=== PATIENT | female | born 1985 | race Caucasian/White ===

== ENCOUNTER 2017-12-03 12:45 | Emergency (ER) | payer BC ==
[2017-12-03 12:55] VITALS: TEMP 98.7
[2017-12-03] MEDS ORDERED: ALPRAZolam 0.5 MG TAB PO STA (13:26)
--- NOTE | 2017-12-03 13:30 | ED ---
General Adult HPI - General Chief complaint: Anxiety Stated complaint: Anxiety Time Seen by Provider: 12/03/17 13:13 Source: patient, RN notes reviewed Mode of arrival: ambulatory Limitations: no limitations - History of Present Illness Initial comments: Patient is a 32-year-old female with significant past medical history for anxiety, presenting today with a chief complaint of possible withdrawals. She states that she's been trying to wean off of her Xanax. She is been followed the family doctor for this. She states she was taking 1 mg twice a day. She states this past month she was taking 0.5 mg twice a day. She states she ran out taking her last dose yesterday morning. She states she was worried and noticed that she was having increased anxiety today. States she was also worried because she wouldn't be able to get new prescription until Wednesday is 4 days away. Patient states she just found out that the pharmacy does have her prescription that she is able to bead picker now. She states she still feeling a little anxious which is symptoms are consistent with anxiety that she's had in the past. She states she's been dealing with this since the age of 16. She states she feels hot and cold sweating. She denies any new symptoms. She denies any other complaints. Patient denies any recent fever, chills, shortness of breath, chest pain, back pain, constipation or diarrhea, headaches or visual changes, or any other complaints. - Related Data Home Medications Medication Instructions Recorded Confirmed ALPRAZolam [Xanax] 0.75 mg PO DAILY PRN 12/03/17 12/03/17 Nicotine 14Mg/24Hr Patch [Habitrol 1 patch TRANSDERM DAILY 12/03/17 12/03/17 14Mg/24Hr Patch] Allergies Allergy/AdvReac Type Severity Reaction Status Date / Time Penicillins Allergy Rash/Hives Verified 12/03/17 13:01 Review of Systems ROS Statement: Those systems with pertinent positive or pertinent negative responses have been documented in the HPI. ROS Other: All systems not noted in ROS Statement are negative. Past Medical History Past Medical History: No Reported History History of Any Multi-Drug Resistant Organisms: None Reported Past Surgical History: No Surgical Hx Reported Additional Past Surgical History / Comment(s): polyps removed prior to IVF Past Anesthesia/Blood Transfusion Reactions: No Reported Reaction Past Psychological History: Anxiety Smoking Status: Current some day smoker Past Alcohol Use History: None Reported Past Drug Use History: None Reported - Past Family History Father History Unknown: Yes Family Medical History: Hypertension Mother Family Medical History: Thyroid Disorder General Exam - General Exam Comments Initial Comments: General: The patient is awake and alert, in no distress, and does not appear acutely ill. Eye: Pupils are equal, round and reactive to light, extra-ocular movements are intact. No nystagmus. There is normal conjunctiva bilaterally. No signs of icterus. Ears, nose, mouth and throat: There are moist mucous membranes and no oral lesions. Neck: The neck is supple Musculoskeletal: Normal ROM, no tenderness. Strength 5/5. Sensation intact. Pulses equal bilaterally 2+. Neurological: A&O x 3. CN II-XII intact, There are no obvious motor or sensory deficits. Coordination appears grossly intact. Speech is normal. Skin: Skin is warm and dry and no rashes or lesions are noted. Psychiatric: Cooperative, appropriate mood & affect, normal judgment. Limitations: no limitations Course Vital Signs 12/03/17 12:53 Temperature 98.7 F Pulse Rate 118 H Respiratory 20 Rate Blood Pressure 138/104 O2 Sat by Pulse 99 Oximetry Medical Decision Making - Medical Decision Making Patient reexamined at this time shows no signs of distress. She is feeling much better after Xanax that was given here in the emergency room. At this time patient will be discharged home and advised follow family doctor. Disposition Clinical Impression: Acute anxiety Disposition: HOME SELF-CARE Condition: Good Additional Instructions: Please use medication as discussed. Please follow-up with family doctor in the next 2 days of symptoms have not improved. Please return to emergency room if the symptoms increase or worsen or for any other concerns. Referrals: None,Stated [Primary Care Provider] - 1-2 days Time of Disposition: 14:12
[2017-12-03 14:18] VITALS: BP 120/76; PULSE 90; RESP 16
== END 2017-12-03 14:15 | disposition home or self-care (01) ==
LOC: EC 12:45
DX: F41.9 Anxiety disorder, unspecified (principal); F17.200 Nicotine dependence, unspecified, uncomplicated; Z79.899 Other long term (current) drug therapy; Z88.0 Allergy status to penicillin
CPT/HCPCS: 99283

== ENCOUNTER 2020-06-28 15:05 | Emergency (ER) | payer BC ==
--- NOTE | 2020-06-28 16:16 | ED ---
ENT HPI - General Chief complaint: ENT Stated complaint: sudden hearing loss Time Seen by Provider: 06/28/20 15:15 Source: patient, RN notes reviewed Mode of arrival: ambulatory Limitations: no limitations - History of Present Illness Initial comments: This a 34-year-old female presents emergency Department with chief complaint of difficulty hearing. Patient states he started with a whooshing sound of her left ear she was seen by her PCP was given some eardrops. Patient states that she was scheduled to see Dr. Whitlock but symptoms worsen so she follow-up with Dr. Miranda yesterday in which she ruled out any signs of infection, fluid or any other acute abnormality. Patient was referred to neurology and which are appointments and August. He instructed the patient that she would most likely need a CAT scan. Patient that she woke up today with a sudden loss of hearing states that she can hear but seems to be decreased. Patient states that she is also having some ongoing vertigo-type symptoms. Patient's had no extreme headaches no blurred vision no focal weakness. Patient has a known pituitary tumor states that has not been bothersome. She denies any trauma to her ear she doesn't that she uses Q-tips. Patient was offered Antivert though patient states that she was told to make her drowsy so she declined. - Related Data Home Medications Medication Instructions Recorded Confirmed ALPRAZolam [Xanax] 0.75 mg PO DAILY PRN 12/03/17 12/03/17 Nicotine 14Mg/24Hr Patch [Habitrol 1 patch TRANSDERM DAILY 12/03/17 12/03/17 14Mg/24Hr Patch] Previous Rx's Medication Instructions Recorded predniSONE 10 mg PO DIRECTED #30 tab 06/28/20 Allergies Allergy/AdvReac Type Severity Reaction Status Date / Time Penicillins Allergy Rash/Hives Verified 06/28/20 15:10 Review of Systems ROS Statement: Those systems with pertinent positive or pertinent negative responses have been documented in the HPI. ROS Other: All systems not noted in ROS Statement are negative. Past Medical History Past Medical History: No Reported History History of Any Multi-Drug Resistant Organisms: None Reported Past Surgical History: No Surgical Hx Reported Additional Past Surgical History / Comment(s): polyps removed prior to IVF Past Anesthesia/Blood Transfusion Reactions: No Reported Reaction Past Psychological History: Anxiety Smoking Status: Current every day smoker Past Alcohol Use History: None Reported Past Drug Use History: None Reported - Past Family History Father History Unknown: Yes Family Medical History: Hypertension Mother Family Medical History: Thyroid Disorder General Exam Limitations: no limitations General appearance: alert, in no apparent distress Head exam: Present: atraumatic, normocephalic, normal inspection Eye exam: Present: normal appearance, PERRL, EOMI. Absent: scleral icterus, conjunctival injection, periorbital swelling ENT exam: Present: normal exam, normal oropharynx, mucous membranes moist, TM's normal bilaterally Neck exam: Present: normal inspection, full ROM. Absent: tenderness, meningismus, lymphadenopathy Respiratory exam: Present: normal lung sounds bilaterally. Absent: respiratory distress, wheezes, rales, rhonchi, stridor Cardiovascular Exam: Present: regular rate, normal rhythm, normal heart sounds. Absent: systolic murmur, diastolic murmur, rubs, gallop, clicks Neurological exam: Present: alert, oriented X3, CN II-XII intact, reflexes normal. Absent: motor sensory deficit Psychiatric exam: Present: normal affect, normal mood Skin exam: Present: warm, dry, intact, normal color. Absent: rash Course Vital Signs 06/28/20 15:06 Temperature 98.5 F Pulse Rate 117 H Respiratory 18 Rate Blood Pressure 137/88 O2 Sat by Pulse 99 Oximetry Medical Decision Making - Medical Decision Making 34-year-old female presented for left ear issues. She has recently seen Dr. Miranda is been referred to neurology. Patient had decreasing hearing today. She's been referred to urine loss specialist. is concerned as she was told she may need steroids. Patient has no obvious cause for hearing loss she was instructed she does need a MRI and will follow-up. Patient placed on steroids at this time return parameters were discussed. Attempted to call ENT Dr. Miranda Disposition Clinical Impression: Decreased hearing of left ear, Tinnitus, Vertigo Disposition: HOME SELF-CARE Condition: Stable Instructions (If sedation given, give patient instructions): Hearing Loss (ED) Additional Instructions: Please return to the Emergency Department if symptoms worsen or any other concerns. Prescriptions: predniSONE 10 mg PO DIRECTED #30 tab Is patient prescribed a controlled substance at d/c from ED?: No Referrals: Giselle Freeman MD [Primary Care Provider] - 1-2 days Attila Miranda MD [STAFF PHYSICIAN] - 1-2 days Time of Disposition: 17:33
--- NOTE | 2020-06-28 16:43 | CT ---
EXAMINATION TYPE: CT brain wo con DATE OF EXAM: 06/28/2020 COMPARISON: None HISTORY: Left ear pain. Whooshing sound and heartbeat sound in left ear yesterday. Loss of hearing to same ear today. History of pituitary tumor. CT DLP: 1094.4 mGycm Automated exposure control for dose reduction was used. Ventricles have normal size. There is no mass effect nor midline shift. There is no sign of intracran ial hemorrhage. Calvarium is intact. Skull base is intact. IMPRESSION: Negative unenhanced head CT scan.
[2020-06-28] MEDS ORDERED: predniSONE 20 MG TAB PO STA (17:31)
[2020-06-28 17:47] VITALS: BP 132/78; PULSE 78; RESP 16; TEMP 97.8
== END 2020-06-28 17:45 | disposition home or self-care (01) ==
LOC: EC 15:05
DX: H91.92 Unspecified hearing loss, left ear (principal); H93.12 Tinnitus, left ear; R42 Dizziness and giddiness; F41.9 Anxiety disorder, unspecified; F17.200 Nicotine dependence, unspecified, uncomplicated; Z79.899 Other long term (current) drug therapy; Z88.0 Allergy status to penicillin
CPT/HCPCS: 70450; 99283; J7512

== ENCOUNTER → 2020-12-07 | Outpatient (CLI) | payer OTHER, BC ==
--- NOTE | 2020-12-07 15:25 | MR ---
EXAMINATION TYPE: MR foot RT wo/w con DATE OF EXAM: 12/07/2020 COMPARISON: None HISTORY: Soft tissue mass, base of great toe. CONTRAST: Standard multiplanar, multisequence MRI departmental protocol utilizing 7 mL intravenous Gadavist cara olinium contrast. The metatarsals are intact. The toes appear intact. There is slight increased joint fluid at the firs t MP joint. There is minimal subcutaneous edema on the dorsal aspect of the first MP joint. I see no bony destructive process. There is rounded area of fluid signal measuring 7 mm at the subcutaneous pl ismael aspect of the distal shaft of the first metatarsal. This is adjacent to the flexor tendon. The contrast images show no pathologic enhancement. IMPRESSION: Superficial rounded fluid collection at the plantar aspect of the distal first metatarsal could be a synovial cyst. Minimal effusion of the first MP joint. No fracture seen.
== END ==
LOC: RADMRIMAIN 13:33
PROVIDERS: ATTEND Podiatrist Foot & Ankle Surgery
DX: M25.474 Effusion, right foot (principal)
CPT/HCPCS: 73720; A9585